=== PATIENT | female | born 1955 ===

== ENCOUNTER → 2018-10-18 | Outpatient (CLI) | payer OTHER ==
[~2018-10-18] MED LIST: ASPI-760 PO; CHOL400T55; CRAN200C5 PO; MULT1CAP59 PO; PARO-243 PO; PRAV80TA29 PO; VITA-175 PO
[2018-10-18 14:09] LABS: PLATELET COUNT, AUTOMATED 386 K/uL (150-450)
[2018-10-18 14:28] LABS: LDL CHOLESTEROL 67 mg/dl
== END ==
LOC: LAB 13:48
PROVIDERS: ATTEND Obstetrics & Gynecology
DX: Z00.00 Encounter for general adult medical examination without abnormal findings (principal)
CPT/HCPCS: 36415; 81001; 82040; 82247; 82310; 82374; 82435; 82465; 82565; 82947; 83718; 84075; 84132; 84155; 84295; 84450; 84460; 84478; 84520; 85025

== ENCOUNTER → 2018-11-16 | Outpatient (CLI) | payer OTHER ==
--- NOTE | 2018-11-16 12:13 | RADIOLOGY IMAGING REPORT ---
FACILITY: [facility] PATIENT NAME: Madisyn Saldaña : 1955 MR: [id number] V: [id number] EXAM DATE: ORDERING PHYSICIAN: JANELLE CONLEY TECHNOLOGIST: [place] [facility] [place] Madisyn Saldaña : 1955 Visit/Account:[id number] Date of Sevice: 11/16/2018 DEXA Scan Clinical history: Osteoporosis screening. Comparison: None. LUMBAR SPINE: Bone mineral density (BMD) measured in the lumbar spine correlates with a T-score of -1.0 and a Z-sco re of 0.4 which is borderline osteopenia as defined by the World Health Organization. The correspond ing risk of fracture in the lumbar spine is borderline increased compared with a young adult referenc e population. Note that degenerative changes may falsely increase bone density. LEFT FEMORAL NECK: Bone mineral density (BMD) measured in the femoral neck region correlates with a T-score of -2.1 and a Z-score of -0.7 which is osteopenia as defined by the World Health Organization. Bone mineral density (BMD) measured in the femoral neck is 0.750 g/cm2. LEFT TOTAL HIP: Total hip bone mineral density (BMD) correlates with a T-score of -1.8 and a Z-score of -0.8 which is osteopenia as defined by the World Health Organization. The corresponding risk of fracture in the hip is increased compared with a young adult reference popu lation. IMPRESSION: 1. Lumbar spine: Borderline osteopenia. 2. Left femoral neck: Osteopenia. 3. Left femoral neck: Bone Mineral Density is 0.750 g/cm2. 4. Left total hip: Osteopenia. FRAX WHO Fracture Risk Assessment Tool link: <http://www.shef.ac.uk/FRAX/tool.jsp?locationValue=9> PLEASE NOTE: 1) The World Health Organization defines low BMD as follows: T-score Normal > -1 Osteopenia < -1 and > -2.5 Osteoporosis < -2.5 without fractures Established osteoporosis < -2.5 with fractures 2) In general, you may wish to consider: Diagnosis Treatment Follow-up DEXA Normal BMD Prevention 2-3 years Osteopenia Prevention/therapy 1-2 years Osteoporosis Therapy Yearly 3) Fracture risk estimated from the T-score is more accurate for vertebral fractures (often spontane ous) than for hip fractures. Report Dictated By: Adam Hills MD at 11/16/2018 12:05 PM Report E-Signed By: Adam Hills MD at 11/16/2018 12:08 PM WSN:[id number]
--- NOTE | 2018-11-17 09:41 | RADIOLOGY IMAGING REPORT ---
[place] [facility] [place] WALTER ALTMAN : [id number] MR: [id number] V: [id number] EXAM DATE: [id number] ORDERING PHYSICIAN: JANELLE CONLEY TECHNOLOGIST: Hillary Devlin PROCEDURE: BILATERAL DIGITAL SCREENING MAMMOGRAM WITH CAD ASSISTED INTERPRETATION & 3D TOMOSYNTHESIS REASON FOR STUDY: Screening FAMILY HISTORY OF BREAST CANCER: None BREAST PROCEDURES/TREATMENTS: Benign aspiration of the Left breast COMPARISON: 10/01/17, 10/01/16, 10/01/15, 09/27/14, 09/26/13 VIEWS OBTAINED: Bilateral 2D & 3D full field CC & MLO BREAST DENSITY: The breasts are heterogeneously dense which can obscure small masses. MAMMOGRAM FINDINGS: The parenchymal pattern has remained stable allowing for difference in mammographic technique & patient positioning. IMPRESSION: BIRADS 1: Negative. DIAGNOSTIC CATEGORY 1--NEGATIVE. RECOMMENDATIONS: ROUTINE MAMMOGRAM AND CLINICAL EVALUATION. Dictated by: Gayle Nielsen M.D. on 11/16/2018 at 16:16 Transcribed by: NATHAN on 11/17/2018 at 6:52 Approved by: Gayle Nielsen M.D. on 11/17/2018 at 9:40 [facility]
== END ==
LOC: MAMO 00:24
PROVIDERS: ATTEND Obstetrics & Gynecology
DX: Z12.31 Encounter for screening mammogram for malignant neoplasm of breast (principal); Z13.820 Encounter for screening for osteoporosis; M85.88 Other specified disorders of bone density and structure, other site
CPT/HCPCS: 77063; 77067; 77080